=== PATIENT | female | born 1935 | race Caucasian/White ===

== ENCOUNTER 2021-05-16 23:14 | Emergency (ER) | payer MEDICARE, BC ==
[~2021-05-16] VITALS: Ht 167.6 cm; Wt 112.2 kg
--- NOTE | 2021-05-16 23:37 | NUR ---
ERMD into eval patient.
[2021-05-16] MEDS ORDERED: LORA-259 PO (23:52)
[2021-05-16] MEDS ORDERED: LEVO150T PO (23:52)
[2021-05-16] MEDS ORDERED: ATOR40TA PO (23:52)
[2021-05-16] MEDS ORDERED: RISP0.5T5 PO (23:52)
[2021-05-16] MEDS ORDERED: POTA-10 PO (23:52)
[2021-05-16] MEDS ORDERED: ASPI81TA31 PO (23:52)
[2021-05-16] MEDS ORDERED: LORA-258 PO (23:52)
[2021-05-16] MEDS ORDERED: MIRT-121 PO (23:52)
[2021-05-16] MEDS ORDERED: ESCI20TA PO (23:52)
[2021-05-16] MEDS ORDERED: TORS20TA3 PO (23:54)
[2021-05-17 00:28] LABS: HEMATOCRIT 38.3 % (31.2-41.9); MEAN CORPUSCULAR HEMOGLOBIN 33.2 uug (24.7-32.8); PLATELET COUNT (AUTO) 235 K/uL (179-408)
[2021-05-17 00:30] LABS: CHLORIDE 98 mmol/L (98-107); CREATININE 0.9 mg/dL (0.6-1.3); GLUCOSE 115 mg/dL (74-106); POTASSIUM 3.9 mmol/L (3.5-5.1); UREA NITROGEN, BLOOD 17 mg/dL (7-18)
[2021-05-17 00:35] LABS: CARBON DIOXIDE 40 mmol/L (21-32)
[2021-05-17 00:43] LABS: ALANINE AMINOTRANSFERASE 19 U/L (14-59); ALKALINE PHOSPHATASE 73 U/L (50-136); ASPARTATE AMINOTRANSFERASE 14 U/L (15-37); BILIRUBIN,DIRECT < 0.1 mg/dL (0.0-0.2); BILIRUBIN,TOTAL 0.3 mg/dL (0.2-1.0); TOTAL PROTEIN, SERUM 7.5 g/dL (6.4-8.2)
[2021-05-17] MEDS ORDERED: IPRATROPIUM BROMIDE 0.5 MG/2.5 ML NEBU NEB ONE (00:45)
[2021-05-17] MEDS ORDERED: ALBUTEROL SULFATE 2.5 MG/3 ML NEBU NEB ONE (00:45)
[2021-05-17] MEDS ORDERED: ALBUTEROL SULFATE 2.5 MG/ 0.5 ML NEBU ONE (00:52)
[2021-05-17] MEDS ORDERED: IPRATROPIUM BROMIDE 0.5 MG/2.5 ML NEBU ONE (00:52)
[2021-05-17] MEDS ORDERED: ALBUTEROL SULFATE 2.5 MG/3 ML NEBU ONE (00:54)
--- NOTE | 2021-05-17 01:00 | NUR ---
Patient in room interacting with her daughter with no distress noted.
--- NOTE | 2021-05-17 02:03 | NUR ---
Patient refused ABG, Dr. Moreno and RN Dewayne leiva.
--- NOTE | 2021-05-17 02:04 | NUR ---
Patient refused to have ABG to be done. Dr Josh leiva.
--- NOTE | 2021-05-17 02:24 | NUR ---
Called [facility] ambulance, ETA is 1hr.
--- NOTE | 2021-05-17 03:15 | NUR ---
Gave SBAR report to [facility] ambulance unit [id number].
--- NOTE | 2021-05-17 03:15 | NUR ---
IV removed. Catheter intact and site benign. Pressure and 4x4 gauze applied to site. No bleeding noted.
[2021-05-17 03:16] VITALS: BP 106/51
--- NOTE | 2021-05-17 03:30 | NUR ---
Patient D/C'ed via [facility] ambulance with patient's daughter going to with patient. No distress noted. Patient and family understood [facility].
== END 2021-05-17 03:56 | disposition home or self-care (01) ==
LOC: ER 23:16
DX: J45.909 Unspecified asthma, uncomplicated (principal); E89.0 Postprocedural hypothyroidism; Z79.890 Hormone replacement therapy; Z79.82 Long term (current) use of aspirin; Z79.899 Other long term (current) drug therapy; I50.9 Heart failure, unspecified
CPT/HCPCS: 36415; 70030-TC; 71045; 83605; 85025; 85730; 87040; 93005; A4663; J3590

== ENCOUNTER 2022-10-05 18:07 | Inpatient (IN) | payer MEDICARE, BC ==
[~2022-10-05] VITALS: Ht 167.6 cm; Wt 110.0 kg
[~2022-10-05 18:07] MED LIST: ASPI81TA31 PO; ATOR40TA PO; ESCI20TA PO; LEVO150T PO; LORA-258 PO; LORA-259 PO; MIRT-121 PO; POTA-10 PO; RISP0.5T5 PO; TORS20TA3 PO
[2022-10-05 20:14] LABS: CARBON DIOXIDE 36 mmol/L (21-32); CHLORIDE 96 mmol/L (98-107); CREATININE 1.1 mg/dL (0.6-1.3); GLUCOSE 131 mg/dL (74-106); UREA NITROGEN, BLOOD 17 mg/dL (7-18)
[2022-10-05] MEDS ORDERED: IPRATROPIUM BROMIDE 0.5 MG/2.5 ML NEBU NEB ONE (20:15)
[2022-10-05] MEDS ORDERED: ALBUTEROL SULFATE 2.5 MG/3 ML NEBU NEB ONE (20:15)
[2022-10-05 20:18] LABS: HEMATOCRIT 35.4 % (31.2-41.9); MEAN CORPUSCULAR HEMOGLOBIN 32.9 uug (24.7-32.8); MEAN CORPUSCULAR VOLUME 97.3 fL (75.5-95.3); PLATELET COUNT (AUTO) 260 K/uL (179-408)
[2022-10-05] MEDS ORDERED: ALBUTEROL SULFATE 2.5 MG/3 ML NEBU ONE (20:44)
[2022-10-05] MEDS ORDERED: IPRATROPIUM BROMIDE 0.5 MG/2.5 ML NEBU ONE (20:44)
[2022-10-05] MEDS ORDERED: CEFTRIAXONE 1 G in IV DEXTROSE 5% 50 ML IV ONE (21:00)
[2022-10-05] MEDS ORDERED: MAGNESIUM SULFATE/D5W 100 ML IV SCH (21:00)
[2022-10-05] MEDS ORDERED: AZITHROMYCIN IV 500 MG in IV DEXTROSE 5% 250 ML IV ONE (21:00)
[2022-10-05 21:13] LABS: *BILIRUBIN,URIN NEGATIVE (NEGATIVE); *BLOOD, URINE NEGATIVE (NEGATIVE); *CLARITY,URINE CLEAR (CLEAR); *COLOR,URINE YELLOW (YELLOW); *KETONES,URINE NEGATIVE (NEGATIVE); *UROBILINOGEN,URINE 0.2 E.U./dl (NORMAL); LEUKOCYTE ESTERASE ,URINE TRACE (NEGATIVE); NITRITE, URINE NEGATIVE (NEGATIVE); UGLUCOSE NEGATIVE (NEGATIVE)
[2022-10-05] MEDS ORDERED: CEFTRIAXONE /D5W 50ML IVPB **ER PYXIS IV ONE (21:47)
[2022-10-05] MEDS ORDERED: MAGNESIUM SULFATE/D5W 100 ML ONE (21:47)
[2022-10-05 23:26] LABS: BACTERIA,URINE FEW /HPF (NONE SEEN); RBC,URINE 0-3 /HPF (0-3); SQUAMOUS EPITHELIAL CELL,UR FEW /HPF (NONE SEEN)
[2022-10-06] MEDS ORDERED: MAGNESIUM SULFATE/D5W 300 ML ONE (00:39)
[2022-10-06] MEDS ORDERED: AZITHROMYCIN 500MG/ D5W 250ML IVPB **ER PYXIS ONLY IV ONE (01:41)
[2022-10-06] MEDS ORDERED: CEFTRIAXONE /D5W 50ML IVPB **ER PYXIS IV ONE (01:42)
[2022-10-06 02:00] VITALS: BP 100/53
[2022-10-06] MEDS ORDERED: ONDANSETRON 4 MG/2 ML VIAL IV PRN (02:00)
[2022-10-06] MEDS ORDERED: ALBUTEROL SULFATE 2.5 MG/3 ML NEBU NEB PRN (02:00)
[2022-10-06] MEDS ORDERED: MORPHINE SULFATE 2 MG/1 ML DISP.SYRIN IV PRN (02:00)
[2022-10-06] MEDS ORDERED: ACETAMINOPHEN 325 MG TABLET PO PRN (02:00)
[2022-10-06] MEDS ORDERED: GUAIFENESIN SUGAR FREE 100 MG/5 ML UDC PO PRN (05:30)
[2022-10-06 06:59] LABS: HEMATOCRIT 31.6 % (31.2-41.9); MEAN CORPUSCULAR HEMOGLOBIN 32.5 uug (24.7-32.8); MEAN CORPUSCULAR VOLUME 97.1 fL (75.5-95.3); PLATELET COUNT (AUTO) 233 K/uL (179-408)
[2022-10-06] MEDS ORDERED: PANTOPRAZOLE SODIUM 40 MG TABLET.DR PO SCH (07:00)
[2022-10-06] MEDS ORDERED: LEVOTHYROXINE SODIUM 150 MCG TABLET PO SCH (07:30)
[2022-10-06 07:40] LABS: BILIRUBIN,TOTAL 0.4 mg/dL (0.2-1.0); CREATININE 0.8 mg/dL (0.6-1.3); MAGNESIUM 2.3 mg/dL (1.8-2.4); PHOSPHOROUS 4.6 mg/dL (2.5-4.9); POTASSIUM 3.2 mmol/L (3.5-5.1)
[2022-10-06 07:41] LABS: THYROID STIMULATING HORMONE 0.392 mIU/mL (0.358-3.740)
[2022-10-06 08:00] VITALS: BP 112/48
[2022-10-06] MEDS: LORAZEPAM 0.5 MG TABLET PO SCH ×2 (08:17→10:05)
[2022-10-06] MEDS ORDERED: ASPIRIN 81 MG TAB.CHEW PO SCH (09:00)
[2022-10-06 11:18] VITALS: BP 111/40
[2022-10-06] MEDS ORDERED: POTASSIUM CHLORIDE 20 MEQ TAB.PRT.SR PO ONE (13:45)
[2022-10-06] MEDS ORDERED: MIRALAX 17 GM POWD.PACK PO ONE (15:00)
[2022-10-06] MEDS ORDERED: ESCITALOPRAM OXALATE 10 MG TABLET PO SCH (15:00)
[2022-10-06 15:21] VITALS: BP 119/63
[2022-10-06] MEDS ORDERED: AZITHROMYCIN IV 500 MG in IV DEXTROSE 5% 250 ML IV SCH (21:00)
[2022-10-06] MEDS ORDERED: LORAZEPAM 1 MG TABLET PO SCH (21:00)
[2022-10-06] MEDS ORDERED: ATORVASTATIN 40 MG TABLET PO SCH (21:00)
[2022-10-06] MEDS ORDERED: MIRTAZAPINE 15 MG TABLET PO SCH (21:00)
[2022-10-06] MEDS ORDERED: CEFTRIAXONE 1 G in IV DEXTROSE 5% 50 ML IV SCH (21:00)
[2022-10-06] MEDS ORDERED: risperiDONE 0.5 MG TABLET PO SCH (21:00)
== END 2022-10-07 00:02 | disposition short-term general hospital (02) | DRG 196 ==
LOC: ER 18:07 → TELE3 10-06 01:00
PROVIDERS: ADMIT Internal Medicine; ATTEND Nurse Practitioner Acute Care
DX: J84.114 Acute interstitial pneumonitis (principal); J96.01 Acute respiratory failure with hypoxia; I50.32 Chronic diastolic (congestive) heart failure; D72.829 Elevated white blood cell count, unspecified; Z20.822 Contact with and (suspected) exposure to COVID-19; E89.0 Postprocedural hypothyroidism; Z79.890 Hormone replacement therapy; Z79.82 Long term (current) use of aspirin; Z79.899 Other long term (current) drug therapy; R09.02 Hypoxemia; E87.6 Hypokalemia
CPT/HCPCS: 36415; 71045; 83605; 83735; 84100; 84443; 84484; 85025; 87040; 93005; 93307; 94664; A4663; C1758; G0378; J0456; J0696; J3475; J3590; J7050